=== PATIENT | male | born 1970 | race Caucasian/White ===

== ENCOUNTER 2025-03-23 23:10 | Emergency (ER) | payer OTHER, SELFPAY ==
--- NOTE | ~2025-03-23 | CT_ITS ---
EXAMINATION: CTA chest PE abdomen pel DATE: 03/24/2025 02:08 INDICATION: Chest pain. TECHNIQUE: Computed tomography angiography (CTA) of the chest was performed with 100 mL Omnipaque-350 intravenous contrast timed to evaluate the pulmonary arteries. Coronal maximum intensity projection 3D-reconstructions were created by the technologist. Computed tomography (CT) of the abdomen and pelvis was performed with intravenous contrast. Automated exposure control and iterative reconstruction technique were employed. The dose-length product was 2458.93 mGy-cm. COMPARISON: None. FINDINGS: CTA chest: There is mild emphysema. There is mild atelectasis bilaterally. A calcified right lung nodule is consistent with old granulomatous disease. No pleural effusion. The heart size is normal. No pericardial effusion. There is no pulmonary embolus. There is a small sliding hiatal hernia. There is moderate cervical spondylosis and mild thoracic spondylosis. CT abdomen and pelvis: The liver demonstrates steatosis and surface nodularity, consistent with cirrhosis. There is a periumbilical portacaval shunt. The gallbladder, spleen, pancreas, and adrenal glands are normal. There is a 12 mm cyst in right kidney. There is a 6 mm stone in left kidney. There is d iverticulosis of the colon without evidence of diverticulitis. The appendix is normal. There are no dilated loops of bowel. There are no pathologically enlarged lymph nodes. There is no free intraperitoneal fluid. There is mild lumbar spondylosis. IMPRESSION: 1. Cirrhosis of the liver with portal venous hypertension. 2. No pulmonary embolus. Reviewed, dictated and finalized at location E.
--- NOTE | ~2025-03-23 | XR_ITS ---
Examination: XR chest 2V Clinical History: chest pain, increased HR Comparison: None Technique: PA and Lateral Findings: Cardiomediastinal silhouette normal size and configuration. Lungs clear. No acute bony abnormality. IMPRESSION: 1. No acute cardiopulmonary findings. Reviewed, dictated and finalized at location R.
[2025-03-23 23:18] VITALS: BP 155/95; PULSE 120; RESP 18; TEMP 36.6; O2SAT 97
--- NOTE | 2025-03-23 23:23 | ECG_ITS ---
Test Date: 2025-03-23 23:30:49 Measurements Intervals [place] Rate: 135 P: -78 VT: 120 QRS: -43 QRSD: 112 T: 48 QT: 347 QTc: 520 Interpretive Statements SINUS TACHYCARDIA LEFT AXIS DEVIATION INCOMPLETE RIGHT BUNDLE BRANCH BLOCK DELAYED PRECORDIAL R/S TRANSITION BORDERLINE ST-T WAVE ABNORMALITY- HIGH LATERAL LEADS BASELINE ARTIFACT- I, II, III, AVR, AVL, AVF, V2, V6 ABNORMAL ECG No previous ECG available for comparison Electronically Signed On 03-24-2025 05:15:24 CDT by Ricky Quiñonez D.O.
--- NOTE | 2025-03-23 23:41 | ECG_ITS ---
Test Date: 2025-03-23 23:47:02 Measurements Intervals [place] Rate: 113 P: 51 ME: 146 QRS: -15 QRSD: 118 T: 53 QT: 360 QTc: 495 Interpretive Statements SINUS TACHYCARDIA INCOMPLETE RIGHT BUNDLE BRANCH BLOCK DELAYED PRECORDIAL R/S TRANSITION ABNORMAL ECG Compared to ECG 03/23/2025 23:30:49 HEART RATE HAS DECREASED Electronically Signed On 03-24-2025 05:16:04 CDT by Ricky Quiñonez D.O.
[2025-03-23 23:59] LABS: Hematocrit 46.9 % (42.0-52.0); Hemoglobin 16.8 g/dL (14.0-18.0); Immature Granulocyte Percent A 0.3 % (0-0.5); Lymphocytes Absolute Auto 1.74 K/mm3 (0.9-3.2); Mean Corpuscular HGB Conc 35.8 g/dl (32-36); Mean Corpuscular Hemoglobin 33.7 pg (26-34); Mean Corpuscular Volume 94.0 fl (80-100); Nucleated Red Blood Cells Absolute Auto 0.000 K/mm3 (0.0-0.012); Nucleated Red Blood Cells Perc 0.0 % (0.0-0.2); Platelet Count Result 106 k/mm3 (150-375); Red Blood Count 4.99 M/mm3 (4.6-6.20); White Blood Count 6.7 K/mm3 (4.5-10.0)
[2025-03-24] VITALS (53 sets, daily range): BP systolic 113–156; BP diastolic 61–98; PULSE 97–121; RESP 12–26; O2SAT 91–99
[2025-03-24 00:12] LABS: INR 1.4; Partial Thromboplastin Time 29.6 Seconds (22.3-36.8); Prothrombin Time 17.6 Seconds (11.1-14.7)
[2025-03-24 00:16] LABS: Alanine Aminotransferase 61 U/L (6-50); Albumin Level 4.2 g/dL (3.5-5.1); Alkaline Phosphatase 162 U/L (38-126); Anion Gap 22 mmol/L (4-12); Aspartate Amino Transferase 176 U/L (17-59); Bilirubin,Total 1.6 mg/dL (0.2-1.3); Blood Urea Nitrogen 4 mg/dL (9-20); Calcium 8.0 mg/dL (8.4-10.2); Carbon Dioxide 21 mmol/L (22-30); Chloride 94 mmol/L (98-107); Estimated CRCL calculation 111 ml/min; Estimated Glomerular Filt Rate > 60; Glucose 82 mg/dL (65-110); Lipase 94 U/L (23-300); Magnesium 1.9 mg/dL (1.6-2.3); Potassium 3.0 mmol/L (3.4-5.0); Sodium 137 mmol/L (137-145); Total Protein 8.5 g/dL (6.3-8.2)
[2025-03-24 00:23] LABS: Troponin I < 0.012 ng/mL (0.000-0.034)
[2025-03-24 00:41] LABS: Thyroid Stimulating Hormone 2.550 uIU/mL (0.465-4.680)
--- NOTE | 2025-03-24 00:55 | ED.ARRPALP ---
HPI - Arrhythmia/Palpitations General Chief Complaint: Arrhythmia/Palpitations <Yelena Jones APRN - Last Filed: 03/24/25 03:53> Stated Complaint: elevated HR <Yelena Jones APRN - Last Filed: 03/24/25 03:53> Time Seen by Provider: 03/23/25 23:41 <Yelena Jones APRN - Last Filed: 03/24/25 03:53> History of Present Illness HPI narrative: Patient is a 54-year-old male who presents to the ER with complaints of left midsternal chest pain that started around 8:00 p.m.. He reports he was having thoughts of harming himself, so he started drinking alcohol tonight. 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 He reports he has been sober for 2 and half years, but found out today that his cellphone and TV were both being turned off because he had not paid his bills. Patient denies any recent fevers, shortness of breath, acute back pain, or excessive caffeine use. He endorses a history of a back injury, alcoholism, osteoarthritis, and PTSD. Patient reports he is on disability through the [facility]. <Yelena Jones APRN - Last Filed: 03/24/25 03:53> Related Data Allergies/Adverse Reactions: Allergies Allergy/AdvReac Type Severity Reaction Status Date / Time aspirin Allergy Severe Anaphylaxis Verified 03/23/25 23:24 ceftriaxone (From Rocephin) Allergy Intermediate Hives Verified 03/23/25 23:24 <Yelena Jones APRN - Last Filed: 03/24/25 03:53> Review of Systems Review of Systems: All systems reviewed & are unremarkable except as noted in HPI and below <Yelena Jones APRN - Last Filed: 03/24/25 03:53> Exam Narrative: GENERAL: Well appearing, well-nourished, non-toxic, in no acute distress. HEAD: Normocephalic, atraumatic. NECK: Supple. No adenopathy, no masses. RESPIRATORY: Airway patent, respirations nonlabored. Clear to auscultation bilaterally, no rales, rhonchi, wheezing. CARDIOVASCULAR: Tachycardia without murmurs, rubs, or gallops. Peripheral pulses 2+ and equal bilaterally. ABDOMINAL: Soft, mildly tender all 4 quadrants, nondistended, no hepatosplenomegaly. Normoactive BS. MUSCULOSKELETAL: Moves all extremities. Strength/ROM intact without gross deformities. SKIN: Warm, dry, normal color. No rashes. NEURO: A&O X3. Speech clear. Cranial nerves II-XII intact. No ataxic movements. PSYCHIATRIC: Appropriate mood and affect. Normal interaction. Tearful intermittently <Yelena Jones APRN - Last Filed: 03/24/25 03:53> Course Course Emergency Course: Patient signed out to me pending 2nd fluid bolus. With this his heart rate is improving,105 beats per minute. his 2nd troponin was okay. I did note that he had elevated liver enzymes but he had a normal salicylate, acetaminophen, coags, and lipase. His potassium has been repleted already by report. Magnesium was appropriate. He did not require anything overnight.. Patient signed out to oncoming morning Doctor pending repeat ethanol level and reassessment. <Tika Downing MD - Last Filed: 03/24/25 09:08> Vital Signs Vital signs: Vital Signs Temperature 97.8 F 03/23/25 23:18 Pulse Rate 120 H 03/23/25 23:18 Respiratory Rate 18 03/23/25 23:18 Blood Pressure 155/95 H 03/23/25 23:18 Pulse Oximetry 97 03/23/25 23:18 Oxygen Delivery Room Air 03/23/25 23:18 Temperature 97.8 F 03/23/25 23:18 Pulse Rate 110 H 03/24/25 14:48 Respiratory Rate 18 03/24/25 14:48 Blood Pressure 152/84 H 03/24/25 14:48 Pulse Oximetry 99 03/24/25 14:48 Oxygen Delivery Room Air 03/23/25 23:18 <Yelena Jones APRN - Last Filed: 03/24/25 03:53> Vital Signs Temperature 97.8 F 03/23/25 23:18 Pulse Rate 120 H 03/23/25 23:18 Respiratory Rate 18 03/23/25 23:18 Blood Pressure 155/95 H 03/23/25 23:18 Pulse Oximetry 97 03/23/25 23:18 Oxygen Delivery Room Air 03/23/25 23:18 Temperature 97.8 F 03/23/25 23:18 Pulse Rate 110 H 03/24/25 14:48 Respiratory Rate 18 03/24/25 14:48 Blood Pressure 152/84 H 03/24/25 14:48 Pulse Oximetry 99 03/24/25 14:48 Oxygen Delivery Room Air 03/23/25 23:18 <Tika Downing MD - Last Filed: 03/24/25 09:08> Vital Signs Temperature 97.8 F 03/23/25 23:18 Pulse Rate 120 H 03/23/25 23:18 Respiratory Rate 18 03/23/25 23:18 Blood Pressure 155/95 H 03/23/25 23:18 Pulse Oximetry 97 03/23/25 23:18 Oxygen Delivery Room Air 03/23/25 23:18 Temperature 97.8 F 03/23/25 23:18 Pulse Rate 110 H 03/24/25 14:48 Respiratory Rate 18 03/24/25 14:48 Blood Pressure 152/84 H 03/24/25 14:48 Pulse Oximetry 99 03/24/25 14:48 Oxygen Delivery Room Air 03/23/25 23:18 <Fahad Rocha MD - Last Filed: 03/24/25 18:02> MDM - Arrhythmia/Palpitations MDM Narrative Medical decision making narrative: Patient is a 54-year-old male who presents to the ER with complaints of left midsternal chest pain that started around 8:00 p.m.. He reports he was having thoughts of harming himself, so he started drinking alcohol tonight. 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 He reports he has been sober for 2 and half years, but found out today that his cellphone and TV were both being turned off because he had not paid his bills. Patient denies any recent fevers, shortness of breath, acute back pain, or excessive caffeine use. He endorses a history of a back injury, alcoholism, osteoarthritis, and PTSD. Patient reports he is on disability through the [facility]. Labs Ordered: CBC, CMP, lipase, ethanol, TSH, D-dimer, magnesium, phosphorus, troponin, PTT, INR, UA, COVID/flu/RSV, UDS Imaging Ordered: chest x-ray, CTA chest abdomen pelvis Medications Ordered: Morphine 2 mg IV (patient declined), thiamine IV, 1 L normal saline IV bolus x2, folic acid IV, Potassium Chloride PO Results: Patient's initial ethanol level is 291. His D-dimer is 10.74. Patient's potassium was 3.0. His CTA chest indicates no pulmonary embolism seen. No acute aortic abnormality. Possible esophagitis, consider esophagram. Patient's CT abdomen pelvis indicates fatty hepatomegaly, correlate for steatohepatitis. No acute finding. CRITICAL CARE ADDENDUM: Indication: chest pain, tachycardia Time type: intermittent I provided a total of 45 minutes of critical care excluding separately billable procedures. This includes time w/ EMS, initial bedside evaluation, reviewing old records, review of testing done while under my care, discussion w/ the family, nurses, managed services sales consultant and guiding the patient?s care while in the emergency department. Approximate time distribution: 5 minutes ? Initial evaluation, d/w involved parties, attempting to gather old records. 10 minutes ? Documenting medical record 10 minutes ? Review of results (EKGs, labs, imaging) 10 minutes ? Serial repeat bedside evaluation 10 minutes ? Discussing case with multiple providers Please see main chart for details. Excludes separately billable procedures. 0345- Care signed out to Dr. Downing pending repeat ethanol levels. <Yelena Jones, MATH PROFESSOR - Last Filed: 03/24/25 03:53> Patient is a 54-year-old male who presents to the ER with complaints of left midsternal chest pain that started around 8:00 p.m.. He reports he was having thoughts of harming himself, so he started drinking alcohol tonight. 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 He reports he has been sober for 2 and half years, but found out today that his cellphone and TV were both being turned off because he had not paid his bills. Patient denies any recent fevers, shortness of breath, acute back pain, or excessive caffeine use. He endorses a history of a back injury, alcoholism, osteoarthritis, and PTSD. Patient reports he is on disability through the [facility]. Labs Ordered: CBC, CMP, lipase, ethanol, TSH, D-dimer, magnesium, phosphorus, troponin, PTT, INR, UA, COVID/flu/RSV, UDS Imaging Ordered: chest x-ray, CTA chest abdomen pelvis Medications Ordered: Morphine 2 mg IV (patient declined), thiamine IV, 1 L normal saline IV bolus x2, folic acid IV, Potassium Chloride PO Results: Patient's initial ethanol level is 291. His D-dimer is 10.74. Patient's potassium was 3.0. His CTA chest indicates no pulmonary embolism seen. No acute aortic abnormality. Possible esophagitis, consider esophagram. Patient's CT abdomen pelvis indicates fatty hepatomegaly, correlate for steatohepatitis. No acute finding. CRITICAL CARE ADDENDUM: Indication: chest pain, tachycardia Time type: intermittent I provided a total of 45 minutes of critical care excluding separately billable procedures. This includes time w/ EMS, initial bedside evaluation, reviewing old records, review of testing done while under my care, discussion w/ the family, nurses, managed services sales consultant and guiding the patient?s care while in the emergency department. Approximate time distribution: 5 minutes ? Initial evaluation, d/w involved parties, attempting to gather old records. 10 minutes ? Documenting medical record 10 minutes ? Review of results (EKGs, labs, imaging) 10 minutes ? Serial repeat bedside evaluation 10 minutes ? Discussing case with multiple providers Please see main chart for details. Excludes separately billable procedures. 0345- Care signed out to Dr. Downing pending repeat ethanol levels. --- On re-evaluation patient is clinically sober and his ethanol is 80. Patient denies any homicidal or suicidal ideation. Patient states these emotions were caused by his drinking alcohol. Patient had been sober for approximately 2 years prior to yesterday. Patient states he prefers to have follow-up with his psychiatrist and counselors. Patient states he is also going to head contact his AA sponsor. Patient prefers to be discharged home. Patient states he does feel safe going home. Patient was emphasized to return to the emergency department if you have any worsening symptoms. <Fahad Rocha MD - Last Filed: 03/24/25 18:02> Differential Diagnosis Differential diagnosis: Likely palpitations, anxiety and other (Acute alcohol intoxication, dehydration, pulmonary embolism, congestive heart failure, abnormal thyroid levels) <Yelena Jones APRN - Last Filed: 03/24/25 03:53> Lab Data Attestation: I reviewed the patient's lab results. <Yelena Jones APRN - Last Filed: 03/24/25 03:53> Result diagrams: 03/23/25 23:54 03/23/25 23:54 <Yelena Jones, MATH PROFESSOR - Last Filed: 03/24/25 03:53> Labs: Lab Results 03/23/25 03/24/25 03/24/25 Range/Units 23:54 00:16 04:21 WBC 6.7 (4.5-10.0) K/mm3 RBC 4.99 (4.6-6.20) M/mm3 Hgb 16.8 (14.0-18.0) g/dL Hct 46.9 (42.0-52.0) % MCV 94.0 (80-100) fl MCH 33.7 (26-34) pg MCHC 35.8 (32-36) g/dl RDW 13.6 (11.5-14.5) % Plt Count 106 L (150-375) k/mm3 MPV 8.9 (7.4-10.4) fl Immature Gran % (Auto) 0.3 (0-0.5) % Neut % (Auto) 66.6 (45.5-73.1) % Lymph % (Auto) 26.2 (18.3-44.2) % [place] % (Auto) 4.8 (2.6-8.5) % Eos % (Auto) 1.8 (0-4.4) % Baso % (Auto) 0.3 (0.2-1.2) % Lymph # (Auto) 1.74 (0.9-3.2) K/mm3 [place] # (Auto) 0.3 (0.1-0.6) K/mm3 Eos # (Auto) 0.1 (0-0.3) K/mm3 Baso # (Auto) 0.0 (0.0-0.1) K/mm3 Abs Immat Gran (auto) 0.02 (0.00-0.031) K/mm3 Absolute Neuts (auto) 4.4 (1.3-6.7) K/mm3 Absolute Nucleated RBC 0.000 (0.0-0.012) K/mm3 Nucleated RBC % 0.0 (0.0-0.2) % PT 17.6 H (11.1-14.7) Seconds INR 1.4 APTT 29.6 (22.3-36.8) Seconds D-Dimer 10.74 H (<0.48) ug/mL Sodium 137 (137-145) mmol/L Potassium 3.0 L (3.4-5.0) mmol/L Chloride 94 L (98-107) mmol/L Carbon Dioxide 21 L (22-30) mmol/L Anion Gap 22 H (4-12) mmol/L BUN 4 L (9-20) mg/dL Creatinine 0.75 (0.7-1.3) mg/dL Estim Creat Clear Calc 111 ml/min Estimated GFR > 60 (59 - ) Glucose 82 (65-110) mg/dL POC Capillary Glucose (65-105) mg/dl Calcium 8.0 L (8.4-10.2) mg/dL Phosphorus 3.0 (2.5-4.5) mg/dL Magnesium 1.9 (1.6-2.3) mg/dL Total Bilirubin 1.6 H (0.2-1.3) mg/dL AST 176 H (17-59) U/L ALT 61 H (6-50) U/L Alkaline Phosphatase 162 H (38-126) U/L Troponin I < 0.012 < 0.012 (0.000-0.034) ng/mL NT-Pro-B Natriuret Pep < 20 (19.9-100) pg/mL Total Protein 8.5 H (6.3-8.2) g/dL Albumin 4.2 (3.5-5.1) g/dL Lipase 94 93 (23-300) U/L TSH 2.550 (0.465-4.680) uIU/mL Urine Color Yellow (Yellow) Urine Appearance Clear (Clear) Urine pH 6.5 (5.0-9.0) Ur Specific [place] 1.027 (1.001-1.035) Urine Protein Trace (Negative) mg/dL Urine Glucose (UA) Negative (Negative) mg/dL Urine Ketones 2+ H (Negative) mg/dL Ur Blood (Man) Negative (Negative) Urine Nitrate Negative (Negative) Urine Bilirubin Negative (Negative) Urine Urobilinogen 1.0 (<2.0) mg/dL Leukocyte Esterase Rfl Negative (Negative) CLARE/UL Urine RBC 0-2 (0-2) /hpf Urine WBC 0-5 (0-3) /hpf Ur Squamous Epith Cells None seen (Few) /hpf Urine Bacteria None seen /hpf Urine Casts 3-5 Salicylates < 1.0 L (2-20) mg/dL Urine Opiates Screen Negative (Negative) Urine Methadone Screen Negative (Negative) Acetaminophen < 10 L (10-30) ug/mL Ur Barbiturates Screen Negative (Negative) Ur Phencyclidine Scrn Negative (Negative) Ur Amphetamine Screen Negative (Negative) U Benzodiazepines Scrn Negative (Negative) Urine Cocaine Screen Negative (Negative) U Cannabinoids Screen Negative (Negative) Ethyl Alcohol 291 (<10) mg/dL Influenza A (RT-PCR) Negative (Negative) Influenza B (RT-PCR) Negative (Negative) RSV (RT-PCR) Negative (Negative) SARS-CoV-2 RNA (RT-PCR) Negative (Negative) 03/24/25 03/24/25 03/24/25 Range/Units 09:00 11:35 13:06 WBC (4.5-10.0) K/mm3 RBC (4.6-6.20) M/mm3 Hgb (14.0-18.0) g/dL Hct (42.0-52.0) % MCV (80-100) fl MCH (26-34) pg MCHC (32-36) g/dl RDW (11.5-14.5) % Plt Count (150-375) k/mm3 MPV (7.4-10.4) fl Immature Gran % (Auto) (0-0.5) % Neut % (Auto) (45.5-73.1) % Lymph % (Auto) (18.3-44.2) % [place] % (Auto) (2.6-8.5) % Eos % (Auto) (0-4.4) % Baso % (Auto) (0.2-1.2) % Lymph # (Auto) (0.9-3.2) K/mm3 [place] # (Auto) (0.1-0.6) K/mm3 Eos # (Auto) (0-0.3) K/mm3 Baso # (Auto) (0.0-0.1) K/mm3 Abs Immat Gran (auto) (0.00-0.031) K/mm3 Absolute Neuts (auto) (1.3-6.7) K/mm3 Absolute Nucleated RBC (0.0-0.012) K/mm3 Nucleated RBC % (0.0-0.2) % PT (11.1-14.7) Seconds INR APTT (22.3-36.8) Seconds D-Dimer (<0.48) ug/mL Sodium (137-145) mmol/L Potassium (3.4-5.0) mmol/L Chloride (98-107) mmol/L Carbon Dioxide (22-30) mmol/L Anion Gap (4-12) mmol/L BUN (9-20) mg/dL Creatinine (0.7-1.3) mg/dL Estim Creat Clear Calc ml/min Estimated GFR (59 - ) Glucose (65-110) mg/dL POC Capillary Glucose (65-105) mg/dl Calcium (8.4-10.2) mg/dL Phosphorus (2.5-4.5) mg/dL Magnesium (1.6-2.3) mg/dL Total Bilirubin (0.2-1.3) mg/dL AST (17-59) U/L ALT (6-50) U/L Alkaline Phosphatase (38-126) U/L Troponin I (0.000-0.034) ng/mL NT-Pro-B Natriuret Pep (19.9-100) pg/mL Total Protein (6.3-8.2) g/dL Albumin (3.5-5.1) g/dL Lipase (23-300) U/L TSH (0.465-4.680) uIU/mL Urine Color (Yellow) Urine Appearance (Clear) Urine pH (5.0-9.0) Ur Specific [place] (1.001-1.035) Urine Protein (Negative) mg/dL Urine Glucose (UA) (Negative) mg/dL Urine Ketones (Negative) mg/dL Ur Blood (Man) (Negative) Urine Nitrate (Negative) Urine Bilirubin (Negative) Urine Urobilinogen (<2.0) mg/dL Leukocyte Esterase Rfl (Negative) CLARE/UL Urine RBC (0-2) /hpf Urine WBC (0-3) /hpf Ur Squamous Epith Cells (Few) /hpf Urine Bacteria /hpf Urine Casts Salicylates (2-20) mg/dL Urine Opiates Screen (Negative) Urine Methadone Screen (Negative) Acetaminophen (10-30) ug/mL Ur Barbiturates Screen (Negative) Ur Phencyclidine Scrn (Negative) Ur Amphetamine Screen (Negative) U Benzodiazepines Scrn (Negative) Urine Cocaine Screen (Negative) U Cannabinoids Screen (Negative) Ethyl Alcohol 155 109 84 (<10) mg/dL Influenza A (RT-PCR) (Negative) Influenza B (RT-PCR) (Negative) RSV (RT-PCR) (Negative) SARS-CoV-2 RNA (RT-PCR) (Negative) 03/24/25 Range/Units 13:58 WBC (4.5-10.0) K/mm3 RBC (4.6-6.20) M/mm3 Hgb (14.0-18.0) g/dL Hct (42.0-52.0) % MCV (80-100) fl MCH (26-34) pg MCHC (32-36) g/dl RDW (11.5-14.5) % Plt Count (150-375) k/mm3 MPV (7.4-10.4) fl Immature Gran % (Auto) (0-0.5) % Neut % (Auto) (45.5-73.1) % Lymph % (Auto) (18.3-44.2) % [place] % (Auto) (2.6-8.5) % Eos % (Auto) (0-4.4) % Baso % (Auto) (0.2-1.2) % Lymph # (Auto) (0.9-3.2) K/mm3 [place] # (Auto) (0.1-0.6) K/mm3 Eos # (Auto) (0-0.3) K/mm3 Baso # (Auto) (0.0-0.1) K/mm3 Abs Immat Gran (auto) (0.00-0.031) K/mm3 Absolute Neuts (auto) (1.3-6.7) K/mm3 Absolute Nucleated RBC (0.0-0.012) K/mm3 Nucleated RBC % (0.0-0.2) % PT (11.1-14.7) Seconds INR APTT (22.3-36.8) Seconds D-Dimer (<0.48) ug/mL Sodium (137-145) mmol/L Potassium (3.4-5.0) mmol/L Chloride (98-107) mmol/L Carbon Dioxide (22-30) mmol/L Anion Gap (4-12) mmol/L BUN (9-20) mg/dL Creatinine (0.7-1.3) mg/dL Estim Creat Clear Calc ml/min Estimated GFR (59 - ) Glucose (65-110) mg/dL POC Capillary Glucose 72 (65-105) mg/dl Calcium (8.4-10.2) mg/dL Phosphorus (2.5-4.5) mg/dL Magnesium (1.6-2.3) mg/dL Total Bilirubin (0.2-1.3) mg/dL AST (17-59) U/L ALT (6-50) U/L Alkaline Phosphatase (38-126) U/L Troponin I (0.000-0.034) ng/mL NT-Pro-B Natriuret Pep (19.9-100) pg/mL Total Protein (6.3-8.2) g/dL Albumin (3.5-5.1) g/dL Lipase (23-300) U/L TSH (0.465-4.680) uIU/mL Urine Color (Yellow) Urine Appearance (Clear) Urine pH (5.0-9.0) Ur Specific [place] (1.001-1.035) Urine Protein (Negative) mg/dL Urine Glucose (UA) (Negative) mg/dL Urine Ketones (Negative) mg/dL Ur Blood (Man) (Negative) Urine Nitrate (Negative) Urine Bilirubin (Negative) Urine Urobilinogen (<2.0) mg/dL Leukocyte Esterase Rfl (Negative) CLARE/UL Urine RBC (0-2) /hpf Urine WBC (0-3) /hpf Ur Squamous Epith Cells (Few) /hpf Urine Bacteria /hpf Urine Casts Salicylates (2-20) mg/dL Urine Opiates Screen (Negative) Urine Methadone Screen (Negative) Acetaminophen (10-30) ug/mL Ur Barbiturates Screen (Negative) Ur Phencyclidine Scrn (Negative) Ur Amphetamine Screen (Negative) U Benzodiazepines Scrn (Negative) Urine Cocaine Screen (Negative) U Cannabinoids Screen (Negative) Ethyl Alcohol (<10) mg/dL Influenza A (RT-PCR) (Negative) Influenza B (RT-PCR) (Negative) RSV (RT-PCR) (Negative) SARS-CoV-2 RNA (RT-PCR) (Negative) <Yelena Halley Jones, MATH PROFESSOR - Last Filed: 03/24/25 03:53> Lab Results 03/23/25 03/24/25 03/24/25 Range/Units 23:54 00:16 04:21 WBC 6.7 (4.5-10.0) K/mm3 RBC 4.99 (4.6-6.20) M/mm3 Hgb 16.8 (14.0-18.0) g/dL Hct 46.9 (42.0-52.0) % MCV 94.0 (80-100) fl MCH 33.7 (26-34) pg MCHC 35.8 (32-36) g/dl RDW 13.6 (11.5-14.5) % Plt Count 106 L (150-375) k/mm3 MPV 8.9 (7.4-10.4) fl Immature Gran % (Auto) 0.3 (0-0.5) % Neut % (Auto) 66.6 (45.5-73.1) % Lymph % (Auto) 26.2 (18.3-44.2) % [place] % (Auto) 4.8 (2.6-8.5) % Eos % (Auto) 1.8 (0-4.4) % Baso % (Auto) 0.3 (0.2-1.2) % Lymph # (Auto) 1.74 (0.9-3.2) K/mm3 [place] # (Auto) 0.3 (0.1-0.6) K/mm3 Eos # (Auto) 0.1 (0-0.3) K/mm3 Baso # (Auto) 0.0 (0.0-0.1) K/mm3 Abs Immat Gran (auto) 0.02 (0.00-0.031) K/mm3 Absolute Neuts (auto) 4.4 (1.3-6.7) K/mm3 Absolute Nucleated RBC 0.000 (0.0-0.012) K/mm3 Nucleated RBC % 0.0 (0.0-0.2) % PT 17.6 H (11.1-14.7) Seconds INR 1.4 APTT 29.6 (22.3-36.8) Seconds D-Dimer 10.74 H (<0.48) ug/mL Sodium 137 (137-145) mmol/L Potassium 3.0 L (3.4-5.0) mmol/L Chloride 94 L (98-107) mmol/L Carbon Dioxide 21 L (22-30) mmol/L Anion Gap 22 H (4-12) mmol/L BUN 4 L (9-20) mg/dL Creatinine 0.75 (0.7-1.3) mg/dL Estim Creat Clear Calc 111 ml/min Estimated GFR > 60 (59 - ) Glucose 82 (65-110) mg/dL POC Capillary Glucose (65-105) mg/dl Calcium 8.0 L (8.4-10.2) mg/dL Phosphorus 3.0 (2.5-4.5) mg/dL Magnesium 1.9 (1.6-2.3) mg/dL Total Bilirubin 1.6 H (0.2-1.3) mg/dL AST 176 H (17-59) U/L ALT 61 H (6-50) U/L Alkaline Phosphatase 162 H (38-126) U/L Troponin I < 0.012 < 0.012 (0.000-0.034) ng/mL NT-Pro-B Natriuret Pep < 20 (19.9-100) pg/mL Total Protein 8.5 H (6.3-8.2) g/dL Albumin 4.2 (3.5-5.1) g/dL Lipase 94 93 (23-300) U/L TSH 2.550 (0.465-4.680) uIU/mL Urine Color Yellow (Yellow) Urine Appearance Clear (Clear) Urine pH 6.5 (5.0-9.0) Ur Specific [place] 1.027 (1.001-1.035) Urine Protein Trace (Negative) mg/dL Urine Glucose (UA) Negative (Negative) mg/dL Urine Ketones 2+ H (Negative) mg/dL Ur Blood (Man) Negative (Negative) Urine Nitrate Negative (Negative) Urine Bilirubin Negative (Negative) Urine Urobilinogen 1.0 (<2.0) mg/dL Leukocyte Esterase Rfl Negative (Negative) CLARE/UL Urine RBC 0-2 (0-2) /hpf Urine WBC 0-5 (0-3) /hpf Ur Squamous Epith Cells None seen (Few) /hpf Urine Bacteria None seen /hpf Urine Casts 3-5 Salicylates < 1.0 L (2-20) mg/dL Urine Opiates Screen Negative (Negative) Urine Methadone Screen Negative (Negative) Acetaminophen < 10 L (10-30) ug/mL Ur Barbiturates Screen Negative (Negative) Ur Phencyclidine Scrn Negative (Negative) Ur Amphetamine Screen Negative (Negative) U Benzodiazepines Scrn Negative (Negative) Urine Cocaine Screen Negative (Negative) U Cannabinoids Screen Negative (Negative) Ethyl Alcohol 291 (<10) mg/dL Influenza A (RT-PCR) Negative (Negative) Influenza B (RT-PCR) Negative (Negative) RSV (RT-PCR) Negative (Negative) SARS-CoV-2 RNA (RT-PCR) Negative (Negative) 03/24/25 03/24/25 03/24/25 Range/Units 09:00 11:35 13:06 WBC (4.5-10.0) K/mm3 RBC (4.6-6.20) M/mm3 Hgb (14.0-18.0) g/dL Hct (42.0-52.0) % MCV (80-100) fl MCH (26-34) pg MCHC (32-36) g/dl RDW (11.5-14.5) % Plt Count (150-375) k/mm3 MPV (7.4-10.4) fl Immature Gran % (Auto) (0-0.5) % Neut % (Auto) (45.5-73.1) % Lymph % (Auto) (18.3-44.2) % [place] % (Auto) (2.6-8.5) % Eos % (Auto) (0-4.4) % Baso % (Auto) (0.2-1.2) % Lymph # (Auto) (0.9-3.2) K/mm3 [place] # (Auto) (0.1-0.6) K/mm3 Eos # (Auto) (0-0.3) K/mm3 Baso # (Auto) (0.0-0.1) K/mm3 Abs Immat Gran (auto) (0.00-0.031) K/mm3 Absolute Neuts (auto) (1.3-6.7) K/mm3 Absolute Nucleated RBC (0.0-0.012) K/mm3 Nucleated RBC % (0.0-0.2) % PT (11.1-14.7) Seconds INR APTT (22.3-36.8) Seconds D-Dimer (<0.48) ug/mL Sodium (137-145) mmol/L Potassium (3.4-5.0) mmol/L Chloride (98-107) mmol/L Carbon Dioxide (22-30) mmol/L Anion Gap (4-12) mmol/L BUN (9-20) mg/dL Creatinine (0.7-1.3) mg/dL Estim Creat Clear Calc ml/min Estimated GFR (59 - ) Glucose (65-110) mg/dL POC Capillary Glucose (65-105) mg/dl Calcium (8.4-10.2) mg/dL Phosphorus (2.5-4.5) mg/dL Magnesium (1.6-2.3) mg/dL Total Bilirubin (0.2-1.3) mg/dL AST (17-59) U/L ALT (6-50) U/L Alkaline Phosphatase (38-126) U/L Troponin I (0.000-0.034) ng/mL NT-Pro-B Natriuret Pep (19.9-100) pg/mL Total Protein (6.3-8.2) g/dL Albumin (3.5-5.1) g/dL Lipase (23-300) U/L TSH (0.465-4.680) uIU/mL Urine Color (Yellow) Urine Appearance (Clear) Urine pH (5.0-9.0) Ur Specific [place] (1.001-1.035) Urine Protein (Negative) mg/dL Urine Glucose (UA) (Negative) mg/dL Urine Ketones (Negative) mg/dL Ur Blood (Man) (Negative) Urine Nitrate (Negative) Urine Bilirubin (Negative) Urine Urobilinogen (<2.0) mg/dL Leukocyte Esterase Rfl (Negative) CLARE/UL Urine RBC (0-2) /hpf Urine WBC (0-3) /hpf Ur Squamous Epith Cells (Few) /hpf Urine Bacteria /hpf Urine Casts Salicylates (2-20) mg/dL Urine Opiates Screen (Negative) Urine Methadone Screen (Negative) Acetaminophen (10-30) ug/mL Ur Barbiturates Screen (Negative) Ur Phencyclidine Scrn (Negative) Ur Amphetamine Screen (Negative) U Benzodiazepines Scrn (Negative) Urine Cocaine Screen (Negative) U Cannabinoids Screen (Negative) Ethyl Alcohol 155 109 84 (<10) mg/dL Influenza A (RT-PCR) (Negative) Influenza B (RT-PCR) (Negative) RSV (RT-PCR) (Negative) SARS-CoV-2 RNA (RT-PCR) (Negative) 03/24/25 Range/Units 13:58 WBC (4.5-10.0) K/mm3 RBC (4.6-6.20) M/mm3 Hgb (14.0-18.0) g/dL Hct (42.0-52.0) % MCV (80-100) fl MCH (26-34) pg MCHC (32-36) g/dl RDW (11.5-14.5) % Plt Count (150-375) k/mm3 MPV (7.4-10.4) fl Immature Gran % (Auto) (0-0.5) % Neut % (Auto) (45.5-73.1) % Lymph % (Auto) (18.3-44.2) % [place] % (Auto) (2.6-8.5) % Eos % (Auto) (0-4.4) % Baso % (Auto) (0.2-1.2) % Lymph # (Auto) (0.9-3.2) K/mm3 [place] # (Auto) (0.1-0.6) K/mm3 Eos # (Auto) (0-0.3) K/mm3 Baso # (Auto) (0.0-0.1) K/mm3 Abs Immat Gran (auto) (0.00-0.031) K/mm3 Absolute Neuts (auto) (1.3-6.7) K/mm3 Absolute Nucleated RBC (0.0-0.012) K/mm3 Nucleated RBC % (0.0-0.2) % PT (11.1-14.7) Seconds INR APTT (22.3-36.8) Seconds D-Dimer (<0.48) ug/mL Sodium (137-145) mmol/L Potassium (3.4-5.0) mmol/L Chloride (98-107) mmol/L Carbon Dioxide (22-30) mmol/L Anion Gap (4-12) mmol/L BUN (9-20) mg/dL Creatinine (0.7-1.3) mg/dL Estim Creat Clear Calc ml/min Estimated GFR (59 - ) Glucose (65-110) mg/dL POC Capillary Glucose 72 (65-105) mg/dl Calcium (8.4-10.2) mg/dL Phosphorus (2.5-4.5) mg/dL Magnesium (1.6-2.3) mg/dL Total Bilirubin (0.2-1.3) mg/dL AST (17-59) U/L ALT (6-50) U/L Alkaline Phosphatase (38-126) U/L Troponin I (0.000-0.034) ng/mL NT-Pro-B Natriuret Pep (19.9-100) pg/mL Total Protein (6.3-8.2) g/dL Albumin (3.5-5.1) g/dL Lipase (23-300) U/L TSH (0.465-4.680) uIU/mL Urine Color (Yellow) Urine Appearance (Clear) Urine pH (5.0-9.0) Ur Specific [place] (1.001-1.035) Urine Protein (Negative) mg/dL Urine Glucose (UA) (Negative) mg/dL Urine Ketones (Negative) mg/dL Ur Blood (Man) (Negative) Urine Nitrate (Negative) Urine Bilirubin (Negative) Urine Urobilinogen (<2.0) mg/dL Leukocyte Esterase Rfl (Negative) CLARE/UL Urine RBC (0-2) /hpf Urine WBC (0-3) /hpf Ur Squamous Epith Cells (Few) /hpf Urine Bacteria /hpf Urine Casts Salicylates (2-20) mg/dL Urine Opiates Screen (Negative) Urine Methadone Screen (Negative) Acetaminophen (10-30) ug/mL Ur Barbiturates Screen (Negative) Ur Phencyclidine Scrn (Negative) Ur Amphetamine Screen (Negative) U Benzodiazepines Scrn (Negative) Urine Cocaine Screen (Negative) U Cannabinoids Screen (Negative) Ethyl Alcohol (<10) mg/dL Influenza A (RT-PCR) (Negative) Influenza B (RT-PCR) (Negative) RSV (RT-PCR) (Negative) SARS-CoV-2 RNA (RT-PCR) (Negative) <Tika Downing MD - Last Filed: 03/24/25 09:08> Lab Results 03/23/25 03/24/25 03/24/25 Range/Units 23:54 00:16 04:21 WBC 6.7 (4.5-10.0) K/mm3 RBC 4.99 (4.6-6.20) M/mm3 Hgb 16.8 (14.0-18.0) g/dL Hct 46.9 (42.0-52.0) % MCV 94.0 (80-100) fl MCH 33.7 (26-34) pg MCHC 35.8 (32-36) g/dl RDW 13.6 (11.5-14.5) % Plt Count 106 L (150-375) k/mm3 MPV 8.9 (7.4-10.4) fl Immature Gran % (Auto) 0.3 (0-0.5) % Neut % (Auto) 66.6 (45.5-73.1) % Lymph % (Auto) 26.2 (18.3-44.2) % [place] % (Auto) 4.8 (2.6-8.5) % Eos % (Auto) 1.8 (0-4.4) % Baso % (Auto) 0.3 (0.2-1.2) % Lymph # (Auto) 1.74 (0.9-3.2) K/mm3 [place] # (Auto) 0.3 (0.1-0.6) K/mm3 Eos # (Auto) 0.1 (0-0.3) K/mm3 Baso # (Auto) 0.0 (0.0-0.1) K/mm3 Abs Immat Gran (auto) 0.02 (0.00-0.031) K/mm3 Absolute Neuts (auto) 4.4 (1.3-6.7) K/mm3 Absolute Nucleated RBC 0.000 (0.0-0.012) K/mm3 Nucleated RBC % 0.0 (0.0-0.2) % PT 17.6 H (11.1-14.7) Seconds INR 1.4 APTT 29.6 (22.3-36.8) Seconds D-Dimer 10.74 H (<0.48) ug/mL Sodium 137 (137-145) mmol/L Potassium 3.0 L (3.4-5.0) mmol/L Chloride 94 L (98-107) mmol/L Carbon Dioxide 21 L (22-30) mmol/L Anion Gap 22 H (4-12) mmol/L BUN 4 L (9-20) mg/dL Creatinine 0.75 (0.7-1.3) mg/dL Estim Creat Clear Calc 111 ml/min Estimated GFR > 60 (59 - ) Glucose 82 (65-110) mg/dL POC Capillary Glucose (65-105) mg/dl Calcium 8.0 L (8.4-10.2) mg/dL Phosphorus 3.0 (2.5-4.5) mg/dL Magnesium 1.9 (1.6-2.3) mg/dL Total Bilirubin 1.6 H (0.2-1.3) mg/dL AST 176 H (17-59) U/L ALT 61 H (6-50) U/L Alkaline Phosphatase 162 H (38-126) U/L Troponin I < 0.012 < 0.012 (0.000-0.034) ng/mL NT-Pro-B Natriuret Pep < 20 (19.9-100) pg/mL Total Protein 8.5 H (6.3-8.2) g/dL Albumin 4.2 (3.5-5.1) g/dL Lipase 94 93 (23-300) U/L TSH 2.550 (0.465-4.680) uIU/mL Urine Color Yellow (Yellow) Urine Appearance Clear (Clear) Urine pH 6.5 (5.0-9.0) Ur Specific [place] 1.027 (1.001-1.035) Urine Protein Trace (Negative) mg/dL Urine Glucose (UA) Negative (Negative) mg/dL Urine Ketones 2+ H (Negative) mg/dL Ur Blood (Man) Negative (Negative) Urine Nitrate Negative (Negative) Urine Bilirubin Negative (Negative) Urine Urobilinogen 1.0 (<2.0) mg/dL Leukocyte Esterase Rfl Negative (Negative) CLARE/UL Urine RBC 0-2 (0-2) /hpf Urine WBC 0-5 (0-3) /hpf Ur Squamous Epith Cells None seen (Few) /hpf Urine Bacteria None seen /hpf Urine Casts 3-5 Salicylates < 1.0 L (2-20) mg/dL Urine Opiates Screen Negative (Negative) Urine Methadone Screen Negative (Negative) Acetaminophen < 10 L (10-30) ug/mL Ur Barbiturates Screen Negative (Negative) Ur Phencyclidine Scrn Negative (Negative) Ur Amphetamine Screen Negative (Negative) U Benzodiazepines Scrn Negative (Negative) Urine Cocaine Screen Negative (Negative) U Cannabinoids Screen Negative (Negative) Ethyl Alcohol 291 (<10) mg/dL Influenza A (RT-PCR) Negative (Negative) Influenza B (RT-PCR) Negative (Negative) RSV (RT-PCR) Negative (Negative) SARS-CoV-2 RNA (RT-PCR) Negative (Negative) 03/24/25 03/24/25 03/24/25 Range/Units 09:00 11:35 13:06 WBC (4.5-10.0) K/mm3 RBC (4.6-6.20) M/mm3 Hgb (14.0-18.0) g/dL Hct (42.0-52.0) % MCV (80-100) fl MCH (26-34) pg MCHC (32-36) g/dl RDW (11.5-14.5) % Plt Count (150-375) k/mm3 MPV (7.4-10.4) fl Immature Gran % (Auto) (0-0.5) % Neut % (Auto) (45.5-73.1) % Lymph % (Auto) (18.3-44.2) % [place] % (Auto) (2.6-8.5) % Eos % (Auto) (0-4.4) % Baso % (Auto) (0.2-1.2) % Lymph # (Auto) (0.9-3.2) K/mm3 [place] # (Auto) (0.1-0.6) K/mm3 Eos # (Auto) (0-0.3) K/mm3 Baso # (Auto) (0.0-0.1) K/mm3 Abs Immat Gran (auto) (0.00-0.031) K/mm3 Absolute Neuts (auto) (1.3-6.7) K/mm3 Absolute Nucleated RBC (0.0-0.012) K/mm3 Nucleated RBC % (0.0-0.2) % PT (11.1-14.7) Seconds INR APTT (22.3-36.8) Seconds D-Dimer (<0.48) ug/mL Sodium (137-145) mmol/L Potassium (3.4-5.0) mmol/L Chloride (98-107) mmol/L Carbon Dioxide (22-30) mmol/L Anion Gap (4-12) mmol/L BUN (9-20) mg/dL Creatinine (0.7-1.3) mg/dL Estim Creat Clear Calc ml/min Estimated GFR (59 - ) Glucose (65-110) mg/dL POC Capillary Glucose (65-105) mg/dl Calcium (8.4-10.2) mg/dL Phosphorus (2.5-4.5) mg/dL Magnesium (1.6-2.3) mg/dL Total Bilirubin (0.2-1.3) mg/dL AST (17-59) U/L ALT (6-50) U/L Alkaline Phosphatase (38-126) U/L Troponin I (0.000-0.034) ng/mL NT-Pro-B Natriuret Pep (19.9-100) pg/mL Total Protein (6.3-8.2) g/dL Albumin (3.5-5.1) g/dL Lipase (23-300) U/L TSH (0.465-4.680) uIU/mL Urine Color (Yellow) Urine Appearance (Clear) Urine pH (5.0-9.0) Ur Specific [place] (1.001-1.035) Urine Protein (Negative) mg/dL Urine Glucose (UA) (Negative) mg/dL Urine Ketones (Negative) mg/dL Ur Blood (Man) (Negative) Urine Nitrate (Negative) Urine Bilirubin (Negative) Urine Urobilinogen (<2.0) mg/dL Leukocyte Esterase Rfl (Negative) CLARE/UL Urine RBC (0-2) /hpf Urine WBC (0-3) /hpf Ur Squamous Epith Cells (Few) /hpf Urine Bacteria /hpf Urine Casts Salicylates (2-20) mg/dL Urine Opiates Screen (Negative) Urine Methadone Screen (Negative) Acetaminophen (10-30) ug/mL Ur Barbiturates Screen (Negative) Ur Phencyclidine Scrn (Negative) Ur Amphetamine Screen (Negative) U Benzodiazepines Scrn (Negative) Urine Cocaine Screen (Negative) U Cannabinoids Screen (Negative) Ethyl Alcohol 155 109 84 (<10) mg/dL Influenza A (RT-PCR) (Negative) Influenza B (RT-PCR) (Negative) RSV (RT-PCR) (Negative) SARS-CoV-2 RNA (RT-PCR) (Negative) 03/24/25 Range/Units 13:58 WBC (4.5-10.0) K/mm3 RBC (4.6-6.20) M/mm3 Hgb (14.0-18.0) g/dL Hct (42.0-52.0) % MCV (80-100) fl MCH (26-34) pg MCHC (32-36) g/dl RDW (11.5-14.5) % Plt Count (150-375) k/mm3 MPV (7.4-10.4) fl Immature Gran % (Auto) (0-0.5) % Neut % (Auto) (45.5-73.1) % Lymph % (Auto) (18.3-44.2) % [place] % (Auto) (2.6-8.5) % Eos % (Auto) (0-4.4) % Baso % (Auto) (0.2-1.2) % Lymph # (Auto) (0.9-3.2) K/mm3 [place] # (Auto) (0.1-0.6) K/mm3 Eos # (Auto) (0-0.3) K/mm3 Baso # (Auto) (0.0-0.1) K/mm3 Abs Immat Gran (auto) (0.00-0.031) K/mm3 Absolute Neuts (auto) (1.3-6.7) K/mm3 Absolute Nucleated RBC (0.0-0.012) K/mm3 Nucleated RBC % (0.0-0.2) % PT (11.1-14.7) Seconds INR APTT (22.3-36.8) Seconds D-Dimer (<0.48) ug/mL Sodium (137-145) mmol/L Potassium (3.4-5.0) mmol/L Chloride (98-107) mmol/L Carbon Dioxide (22-30) mmol/L Anion Gap (4-12) mmol/L BUN (9-20) mg/dL Creatinine (0.7-1.3) mg/dL Estim Creat Clear Calc ml/min Estimated GFR (59 - ) Glucose (65-110) mg/dL POC Capillary Glucose 72 (65-105) mg/dl Calcium (8.4-10.2) mg/dL Phosphorus (2.5-4.5) mg/dL Magnesium (1.6-2.3) mg/dL Total Bilirubin (0.2-1.3) mg/dL AST (17-59) U/L ALT (6-50) U/L Alkaline Phosphatase (38-126) U/L Troponin I (0.000-0.034) ng/mL NT-Pro-B Natriuret Pep (19.9-100) pg/mL Total Protein (6.3-8.2) g/dL Albumin (3.5-5.1) g/dL Lipase (23-300) U/L TSH (0.465-4.680) uIU/mL Urine Color (Yellow) Urine Appearance (Clear) Urine pH (5.0-9.0) Ur Specific [place] (1.001-1.035) Urine Protein (Negative) mg/dL Urine Glucose (UA) (Negative) mg/dL Urine Ketones (Negative) mg/dL Ur Blood (Man) (Negative) Urine Nitrate (Negative) Urine Bilirubin (Negative) Urine Urobilinogen (<2.0) mg/dL Leukocyte Esterase Rfl (Negative) CLARE/UL Urine RBC (0-2) /hpf Urine WBC (0-3) /hpf Ur Squamous Epith Cells (Few) /hpf Urine Bacteria /hpf Urine Casts Salicylates (2-20) mg/dL Urine Opiates Screen (Negative) Urine Methadone Screen (Negative) Acetaminophen (10-30) ug/mL Ur Barbiturates Screen (Negative) Ur Phencyclidine Scrn (Negative) Ur Amphetamine Screen (Negative) U Benzodiazepines Scrn (Negative) Urine Cocaine Screen (Negative) U Cannabinoids Screen (Negative) Ethyl Alcohol (<10) mg/dL Influenza A (RT-PCR) (Negative) Influenza B (RT-PCR) (Negative) RSV (RT-PCR) (Negative) SARS-CoV-2 RNA (RT-PCR) (Negative) <Fahad Rocha MD - Last Filed: 03/24/25 18:02> Imaging Data Attestation: I personally reviewed and interpreted this imaging study as follows: <Yelena Jones APRN - Last Filed: 03/24/25 03:53> Radiologist's impression: His CTA chest indicates no pulmonary embolism seen. No acute aortic abnormality. Possible esophagitis, consider esophagram. Patient's CT abdomen pelvis indicates fatty hepatomegaly, correlate for steatohepatitis. No acute finding. <Yelena Jones APRN - Last Filed: 03/24/25 03:53> Critical Care Time Critical Care Time Critical Care Time: Yes <Yelena Jones APRN - Last Filed: 03/24/25 03:53> Total Critical Care Time: 45 <Yelena Jones APRN - Last Filed: 03/24/25 03:53> Discharge Plan Discharge Clinical Impression: Shortness of breath, Alcohol intoxication, Thoughts of self harm <Yelena Jones APRN - Last Filed: 03/24/25 03:53> Patient Disposition: Home <Yelena Jones APRN - Last Filed: 03/24/25 03:53> Condition: Stable <Yelena Jones APRN - Last Filed: 03/24/25 03:53> Instructions: Antibiotic Form, Alcohol Use Disorder (ED), Suicide Prevention (ED) <Yelena Jones APRN - Last Filed: 03/24/25 03:53> Additional Instructions: Continue to have close follow-up with your AA sponsor. Have close follow-up with your psychiatrist and counselor. If you have any worsening symptoms please call or return to the emergency department. <Yelena Jones APRN - Last Filed: 03/24/25 03:53> Patient Language: Macedonian <Yelena Jones APRN - Last Filed: 03/24/25 03:53> Follow-up/Referrals: [facility] [Primary Care Provider, Medical] <Yelena Jones APRN - Last Filed: 03/24/25 03:53>
[2025-03-24 01:18] LABS: NT Pro B Type Natriuretic Pept < 20 pg/mL (19.9-100)
[2025-03-24] MEDS: SODIUM CHLORIDE 0.9% IV 1,000 ML 999 ML IV CONT ×2 (01:22→05:06)
[2025-03-24] MEDS: THIAMINE HCL 200 MG/2 ML VIAL 100 MG IV PUSH (01:23)
[2025-03-24] MEDS: FOLIC ACID 1 MG/0.2 ML INJ IV PUSH (01:23)
[2025-03-24] MEDS: POTASSIUM CHLORIDE 20 MEQ PACKET (FOR LIQUID) 40 MEQ PO (01:23)
[2025-03-24 01:27] LABS: Influenza A QL RT-PCR Negative (Negative); Influenza B QL RT-PCR Negative (Negative); RSV RNA, RT-PCR Negative (Negative); SARS-CoV-2 RNA PCR Negative (Negative)
[2025-03-24 04:35] LABS: Add Urine Microscopic? YES; Appearance Urine Clear (Clear); Glucose Urine UA Negative (Negative); Leukocyte Esterase Ur Negative LEU/UL (Negative); Nitrate Urine Negative (Negative); Specific Grav Ur 1.027 (1.001-1.035)
[2025-03-24 04:47] LABS: Cannabinoid Screen Urine Negative (Negative)
[2025-03-24 04:55] LABS: Troponin I < 0.012 ng/mL (0.000-0.034)
[2025-03-24] MEDS: FAMOTIDINE 20 MG/2 ML VIAL IV PUSH (05:06)
[2025-03-24] MEDS: PANTOPRAZOLE SODIUM IV 40 MG VIAL IV PUSH (05:06)
[2025-03-24 05:27] LABS: Lipase 93 U/L (23-300)
[2025-03-24 05:29] LABS: Acetaminophen < 10 ug/mL (10-30); Salicylate < 1.0 mg/dL (2-20)
--- NOTE | 2025-03-24 14:15 | PC.NURSE ---
Upon RN reassessment, pt noticeably having tremors to bilateral hands. Pt A&Ox4, calm and cooperative. [place] scale repeated, pt adamantly denies any thoughts of SI. Pt reports he has a counselor and psychiatrist that he follows with, as well as AA. Pt states that he does not intend to continue drinking, as he was previously sober for over two years. Pt reports mild nausea, but denies any other symptoms, see CIWA assessment. FSBS 72. Pt provided sandwich, soda, pretzels. MD Rocha updated on pt status and came to room to speak with pt and reassess.
[2025-03-24] MEDS: ONDANSETRON INJ 4 MG/2 ML VIAL IV PUSH (14:16)
== END 2025-03-24 14:48 | disposition home or self-care (01) ==
PROVIDERS: Emergency Medicine; Registered Nurse; Emergency Provider Student in an Organized Health Care Education/Training Program
DX: F10.229 Alcohol dependence with intoxication, unspecified (principal); Y90.8 Blood alcohol level of 240 mg/100 ml or more; R45.851 Suicidal ideations; R06.02 Shortness of breath; M19.90 Unspecified osteoarthritis, unspecified site; F43.10 Post-traumatic stress disorder, unspecified; Z20.822 Contact with and (suspected) exposure to COVID-19; I45.10 Unspecified right bundle-branch block; R00.0 Tachycardia, unspecified; R94.31 Abnormal electrocardiogram [ECG] [EKG]
CPT/HCPCS: 36415; 71046; 71275; 74177; 80053; 80143; 80179; 80307; 81001; 82077; 82948; 83690; 83735; 83880; 84100; 84443; 84484; 85025; 85380; 85610; 85730; 87637; 93005; 96361; 96374; 96375; 99284; A9270; J2405; J2470; J3411; J7030; Q9967